=== PATIENT | female | born 1990 | race Caucasian/White ===

== ENCOUNTER 2024-03-13 12:25 | Outpatient (AMB) | payer MEDICAID, SELFPAY ==
--- NOTE | 2024-03-13 12:29 | A.OFFVIS_ITS ---
Vital Signs 03/13/24 12:31 Height 5 ft 3.5 in Weight 135 lb BMI 23.5 BP 110/60 Blood Pressure Location Rt brachial Position Sitting Pulse 65 Pulse Source Pulse Oximeter Pulse Oximetry (%) 98 Oxygen Delivery Method Room Air Intake Visit Reasons: + RF/CM Intake Note: New patient, externally referred by Jeanie, YARED Stallings, presents to office today for +RF. Joints affected: multiple Pain began approx: over a year Has tried: Acetaminophen, collagen Lung Splitter Required: No Accompanied by: Self / Same As Patient Allergies No Known Allergies Allergy (Verified 03/13/24 12:36) HPI Comments Details: Ms. Garcia 34 yoF presents for evaluation of intermittent +RF and multiple joint pain. She has been having pain the continues to worsen. --multiple joint pain --malaise and fatigue started 2 years --followed with multiple bouts of illnesses - strep, the flu, cold. Each time the duration is long and hard to recover. Body continues to feel achy, --does not notice swelling --denies rash. Fleshy hard lump to right but cheek in September 2023 - took two months to resolve. Hx of Pilonidal cyst at age 14- was excised and drained --wears contacts; dry eyes not an issue; got cataract at age 26 - unexplained --denies dry mouth, but feels like tongue swell sometimes - teeth presses on tongue - not sure why; no problem swallowing food --denies chronic fevers, unexplained weight loss. --denies sun sensitivity, Raynaud's phenominon --Hx chronic diarrhea - no longer daily - seen GI and had no adverse findings for UC/crohns; was referred to a transfer iron operator. --denies urine ok; no , no DVT. --denies pericarditis, pleuritis. --usually exercise 4 or 5 times per week before symptoms --denies injury - 10 year ago landed on left wrist - did not require intervention. --no hair loss; denies calp sore and mouth sores. --saw DERM for mole on right neck - benign --thyroid checked - no issues --Cardiology consult - no adverse findings --Had COVID 3 times - last 2020. [facility] Medical History (Updated 03/13/24 @ 13:52 by ANDREZ GuzmanP-BC) Pain in joint involving multiple sites Fatigue IBS (irritable bowel syndrome) Tenderness of temporomandibular joint Iron deficiency anemia OCD (obsessive compulsive disorder) Familial multiple lipoprotein-type hyperlipidemia Family History Father Hyperlipidemia, unspecified Heart disease Maternal Grandmother Arthritis Heart disease Malignant neoplasm of lung Social History (Updated 03/13/24 @ 12:37 by GENNARO Turk) Alcohol intake: current Alcohol intake frequency: a few times a week Patient Tobacco Use Status: Never used Tobacco Current occupational status: employed Current occupation: mental health therapist, commercial underwriter Review of Systems Const All systems reviewed & are unremarkable except as noted in HPI and below Physical Exam Vital Signs: Last Vital Signs Pulse 65 03/13/24 12:31 BP 110/60 03/13/24 12:31 Pulse Ox 98 03/13/24 12:31 Oxygen Delivery Method Room Air 03/13/24 12:31 BMI result Body Mass Index 23.5 APPEARANCE: Patient in no acute distress EYES no redness, normal EARS:? External ear normal. NOSE/SINUS:? Airflow through both nares, no nasal discharge, no bleeding THROAT:? Oral mucosa moist, no ulcerations NECK:? No thyromegaly or masses, no adenopathy, trachea midline. HEART:? Regular rhythm, S1-S2 heard, no murmurs, rubs or gallops. LUNG:? Clear to percussion and auscultation EXTREMITIES:? No edema, no calf tenderness, normal peripheral pulses. NEURO:? Oriented and alert x3.? No focal weakness.? Reflexes symmetric.? Gait normal. SKIN:? There are no skin lesions evident. No objective signs of Raynaud's phenomenon. JOINT EXAM: Cervical Spine:.? Full range of motion without pain; no tenderness. Thoracic Spine:.? No scoliosis.? No tenderness on palpation. Lumbar Spine:.? Alignment normal.? Full range of motion without pain, no tenderness. Chest Wall:.? No tenderness, swelling, increased warmth or erythema. Hands:.? Normal pain-free range of motion without tenderness, swelling, increased warmth or erythema. Able to make a full fist and has a good pattern weaver strength. Wrists:.? Normal pain-free range of motion without tenderness, swelling, increased warmth or erythema. Elbows:. Normal pain-free range of motion without tenderness, swelling, increased warmth or erythema. Shoulders:.?? Full range of motion without pain. No tenderness, weakness, swelling, increased warmth or erythema. Hips:.? Full range of motion without pain. Hip bursa:.? No tenderness. Knees:.?? Normal pain-free range of motion without tenderness, swelling, increased warmth or erythema.? There is no effusion or crepitation Ankles:.? Normal pain-free range of motion without tenderness, swelling, increased warmth or erythema. Feet:.? Normal pain-free range of motion without tenderness, swelling, increased warmth or erythema. Tender points:? No tenderness to digital palpation at the occiput, trapezius, second rib, lateral epicondyle, knees, greater trochanter and gluteal area bilaterally. Assessment & Plan Assessment & Plan (1) Fatigue: Code(s): R53.83 - Other fatigue Category: Medical Qualifiers: Fatigue type: chronic, unspecified Qualified Code(s): R53.82 - Chronic fatigue, unspecified (2) Pain in joint involving multiple sites: Code(s): M25.50 - Pain in unspecified joint Category: Medical (3) Iron deficiency anemia: Code(s): D50.9 - Iron deficiency anemia, unspecified Category: Medical Qualifiers: Iron deficiency anemia type: inadequate dietary iron intake Qualified Code(s): D50.8 - Other iron deficiency anemias Plan #Multiple Joint Pain: Ms. Garcia here on referral for evaluation of fatigue and total body aches. After initial review of comprehensive history, PE and available diagnostics, I do not think there is an underlying CTD or inflammatory process that underlies her symptoms. Her PE was unremarkable and she denies incidents of joint swelling and tenderness, though they hurt. Her wrist soreness can be from a soft injury from exercise. She has had worsened body aches since serial infections with COVID and strep. She has had a positive RF which was at the time of the respiratory infection and retest is negative. +RF can be seen in the context of chronic infections. Nonetheless, I will do a rheum panel to round out the evaluation. #Fatigue: Fatigue can be seen in may processes: CTD and inflammatory. Cardiovascular, Respiratory, Depression, Endocrine (thyroid). Her thyroid was check and the patient denies depression and the others listed are not in her context. She does have CARL and so I think this may be the main reason. #CARL: She does have a history of CARL and her TIBC and Transferrin Saturation are high. She is taking iron supplements which I encouraged her to take with vitamin C to aid with absorption. I spent 40 minutes reviewing history, evaluating patient and documenting Orders: Orders Erythrocyte Sedimentation Rate Today M25.50 - Pain in unspecified joint, R53.83 - Other fatigue Complete Blood Count Auto Diff Today M25.50 - Pain in unspecified joint, R53.83 - Other fatigue C Reactive Protein Today M25.50 - Pain in unspecified joint, R53.83 - Other fatigue JOJO Reflex Titer and Pattern Today M25.50 - Pain in unspecified joint, R53.83 - Other fatigue Anti Extractable Nuclear Ag Today M25.50 - Pain in unspecified joint, R53.83 - Other fatigue Complement C3 Today M25.50 - Pain in unspecified joint, R53.83 - Other fatigue Complement C4 Today M25.50 - Pain in unspecified joint, R53.83 - Other fatigue Immunofixation Pnl, Serum Today M25.50 - Pain in unspecified joint, R53.83 - Other fatigue Scleroderma 70 Antibody Today M25.50 - Pain in unspecified joint, R53.83 - Other fatigue Cyclic Citrullinated Peptide Today M25.50 - Pain in unspecified joint, R53.83 - Other fatigue Rheumatoid Factor Today M25.50 - Pain in unspecified joint Comprehensive Met. Panel Today M25.50 - Pain in unspecified joint, R53.83 - Other fatigue Creatine Kinase Total Today M25.50 - Pain in unspecified joint, R53.83 - Other fatigue ANCA Vasculitides Today M25.50 - Pain in unspecified joint, R53.83 - Other fatigue Anti-Centromere B Antibodies Today M25.50 - Pain in unspecified joint, R53.83 - Other fatigue Anti DNA DS Antibody Today M25.50 - Pain in unspecified joint, R53.83 - Other fatigue Immunoglobulins,IgG IgA IgM Today M25.50 - Pain in unspecified joint, R53.83 - Other fatigue Protein Electrophoresis, Serum Today M25.50 - Pain in unspecified joint, R53.83 - Other fatigue Sjogren's Antibodies Today M25.50 - Pain in unspecified joint, R53.83 - Other fatigue UA w Microscopic Today M25.50 - Pain in unspecified joint, R53.83 - Other fatigue Vitamin D 25-OH (D2 and D3) Today M25.50 - Pain in unspecified joint, R53.83 - Other fatigue Coding Level of Care Code New Pt Level 4 (48653) Diagnoses Chronic fatigue R53.82 Fatigue type: chronic, unspecified Pain in joint involving multiple sites M25.50 Iron deficiency anemia secondary to inadequate dietary iron intake D50.8 Iron deficiency anemia type: inadequate dietary iron intake
[2024-03-13 12:31] VITALS: BP 110/60; PULSE 65; O2SAT 98; BMI 23.5
== END 2024-03-13 13:37 | disposition home or self-care (01) ==
PROVIDERS: PCP Nurse Practitioner Family; Referring Provider Nurse Practitioner Family; Visit Provider Nurse Practitioner Family
DX: R53.82 Chronic fatigue, unspecified (principal); M25.50 Pain in unspecified joint; D50.8 Other iron deficiency anemias
CPT/HCPCS: 99204

== ENCOUNTER 2024-03-13 12:25 | Outpatient (REF) | payer MEDICAID, SELFPAY ==
[2024-03-13 14:02] LABS: MANUAL DIFF FLAG NO
[2024-03-13 14:57] LABS: Basophils Percent Auto 0.4 % (0-2); Eosinophils Absolute Auto 0.1 X10*3/uL (0.0-0.4); Eosinophils Percent Auto 1.2 % (0-4); Hematocrit 39.2 % (37.0-47.0); Hemoglobin 12.6 g/dl (12.0-16.0); Imm Gran Abs Auto 0.02 X10*3/uL (0.00-0.03); Imm Gran Pct Auto 0.3 % (0.0-0.4); Lymphocytes Absolute Auto 1.4 X10*3/uL (1.2-4.9); Lymphocytes Percent Auto 20.8 % (20-40); Mean Corpuscular HGB Conc 32.1 g/dl (31.0-35.0); Mean Corpuscular Hemoglobin 29.6 pg (27.0-33.0); Mean Corpuscular Volume 92.2 fL (80.0-98.0); Mean Platelet Volume 11.4 fL (9.4-12.3); Monocytes Absolute Auto 0.4 X10*3/uL (0.1-1.2); Monocytes Percent Auto 5.9 % (2-11); Neutrophils Absolute Auto 4.9 x10*3/uL (2.0-8.3); Neutrophils Percent Auto 71.4 % (45-73); Platelet Count 200 X10*3/uL (160-400); Red Blood Count 4.25 X10*6/uL (4.20-5.50); Red Cell Distribution Width 14.2 % (11.0-16.0); White Blood Count 6.9 X10*3/uL (4.8-10.8)
[2024-03-13 15:09] LABS: Appearance Urine Clear; Color Urine Yellow; Glucose Urine UA Negative (Negative); Leukocyte Esterase Urine Negative (Negative); Nitrite Urine Negative (Negative); PH 7.5 (5.0-9.0); Specific Gravity - Urine <= 1.005 (1.005-1.025); Urine Blood Negative (Negative); Urine Ketones Negative (Negative); Urine Protein Negative (Neg-Trace)
[2024-03-13 15:18] LABS: Bacteria Urine None Seen (None Seen); Hyaline Casts Urine 0-2 /LPF (0-2); RBC Urine 0-2 /HPF (0-2); Squamous Epithelial Cell Urine 0-2 /HPF (0-2); WBC Urine 0-5 /HPF (0-5)
[2024-03-13 16:01] LABS: Erythrocyte Sedimentation Rate 10 MM/HR (0-20)
[2024-03-14 21:14] LABS: Complement C3 89 mg/dL (83-193)
[2024-03-16 15:13] LABS: Anti Nuclear Antibody Screen NEGATIVE (NEGATIVE)
[2024-03-17 17:03] LABS: Anti-Centromere B Antibodies <1.0 NEG AI (<1.0 NEG)
== END 2024-03-13 12:26 | disposition home or self-care (01) ==
LOC: HO.LAB 12:25
PROVIDERS: PCP Nurse Practitioner Family; Visit Provider Nurse Practitioner Family
DX: R53.82 Chronic fatigue, unspecified (principal); M25.50 Pain in unspecified joint; D50.8 Other iron deficiency anemias
CPT/HCPCS: 36415; 81001; 85025; 85652; 86038; 86160; 86235; 99202

== ENCOUNTER 2024-03-14 09:44 | Outpatient (REF) | payer MEDICAID, SELFPAY ==
[2024-03-14 11:58] LABS: Rheumatoid Factor < 13.0 IU/mL (<15.0)
[2024-03-14 12:10] LABS: Alanine Aminotransferase 9 U/L (0-31); Albumin Level 4.6 g/dL (3.5-5.0); Alkaline Phosphatase 39 U/L (39-117); Anion Gap 12 (12-20); Aspartate Amino Transferase 13 U/L (5-31); Bilirubin Total 0.6 mg/dL (0.0-1.0); Blood Urea Nitrogen 12 mg/dL (9-16); C Reactive Protein < 0.10 mg/dL (< or = 0.50); Calcium 9.7 mg/dL (8.4-10.2); Carbon Dioxide 26 mmol/L (22-29); Chloride 105 mmol/L (96-108); Estimated Glomerular Filt Rate > 60; Glucose Random 61 mg/dL (60-115); Potassium 4.1 mmol/L (3.3-5.1); Sodium 139 mmol/L (135-145); Total Protein 7.7 g/dL (6.5-8.0)
[2024-03-17 20:43] LABS: Cyclic Citrullinated Peptide <16 UNITS
[2024-03-17 22:09] LABS: Anti DNA DS Antibody 3 IU/mL; Antibody to SS-A Antigen <1.0 NEG AI (<1.0 NEG); Antibody to SS-B Antigen <1.0 NEG AI (<1.0 NEG); Myeloperoxidase Antibody <1.0 AI; Proteinase 3 PR3 Antibodies <1.0 AI; SM/Ribonucleoprotein Ab <1.0 NEG AI (<1.0 NEG); Scleroderma 70 Antibody <1.0 NEG AI (<1.0 NEG); Smith Protein <1.0 NEG AI (<1.0 NEG)
[2024-03-18 14:13] LABS: IgA 289 mg/dL (47-310); IgG 1282 mg/dL (600-1640); IgM 177 mg/dL (50-300)
[2024-03-18 16:08] LABS: Prot Elec - Albumin 4.8 g/dL (3.8-4.8); Prot Elec - Alpha1 0.3 g/dL (0.2-0.3); Prot Elec - Alpha2 0.6 g/dL (0.5-0.9); Prot Elec - Beta 1 0.5 g/dL (0.4-0.6); Prot Elec - Beta 2 0.3 g/dL (0.2-0.5); Prot Elec - Gamma 1.2 g/dL (0.8-1.7); Prot Elec - Total Protein 7.6 g/dL (6.1-8.1)
[2024-03-19 13:42] LABS: Vitamin D 25-OH, D2 <4 ng/mL; Vitamin D 25-OH, D3 35 ng/mL; Vitamin D 25-OH, Total 35 ng/mL (30-100)
== END 2024-03-14 09:45 | disposition home or self-care (01) ==
LOC: HO.LAB 09:44
PROVIDERS: PCP Nurse Practitioner Family; Visit Provider Nurse Practitioner Family
DX: M25.50 Pain in unspecified joint (principal); R53.83 Other fatigue
CPT/HCPCS: 36415; 80053; 82306; 82550; 82784; 84165; 86021; 86140; 86200; 86225; 86235; 86334; 86431